=== PATIENT | female | born 1940 | race Caucasian/White ===

== ENCOUNTER 2019-12-20 11:50 | Outpatient (CLI) | payer OTHER, SELFPAY ==
[2019-12-20 11:59] LABS: Basophils Absolute Auto 0.05 K/mm3 (0.00-0.10); Basophils Percent Auto 0.7 % (0.0-1.0); Eosinophils Absolute Auto 0.29 K/mm3 (0.02-0.50); Eosinophils Percent Auto 4.1 % (1.0-6.0); Hematocrit 35.5 % (35.0-42.0); Hemoglobin 11.8 g/dL (11.7-13.8); Immature Granulocyte Absolute 0.02 K/mm3 (0.00-0.00); Immature Granulocyte Percent A 0.3 % (0.0-0.0); Lymphocytes Absolute Auto 2.09 K/mm3 (1.10-4.50); Lymphocytes Percent Auto 29.9 % (18.0-42.0); Mean Corpuscular HGB Conc 33.2 g/dL (32.0-36.0); Mean Corpuscular Hemoglobin 32.8 pg (27.0-31.0); Mean Corpuscular Volume 98.6 fL (78.0-102.0); Mean Platelet Volume 8.5 fl (9.2-11.8); Monocytes Absolute Auto 0.55 K/mm3 (0.10-0.90); Monocytes Percent Auto 7.9 % (2.0-11.0); Neutrophils Percent Auto 57.1 % (50.0-70.0); Platelet Count Result 362 K/mm3 (150-420); Red Cell Distribution Width 12.2 % (11.6-14.4)
[2019-12-20 12:20] LABS: Hemoglobin A1C 7.4 % (<5.7)
[2019-12-20 13:16] LABS: Alanine Aminotransferase 15 U/L (14-59); Albumin Level 3.8 g/dL (3.4-5.0); Alkaline Phosphatase 51 U/L (46-116); Anion Gap 12.3 mmol/L (7-16); Aspartate Amino Transferase 15 U/L (15-37); Bilirubin,Total 0.3 mg/dL (0.00-1.00); Blood Urea Nitrogen 35 mg/dL (7-18); Calcium 8.8 mg/dL (8.5-10.1); Carbon Dioxide 30 mmol/L (21-32); Chloride 101 mmol/L (98-108); Cholesterol 162 mg/dL (0-200); Estimated Glomerular Filt Rate 42; Glucose 116 mg/dL (70-99); HDL Direct 73 mg/dL (40-60); LDL Cholesterol Calculated 68 mg/dL (<130); Osmolality Calculated 297 mOsm/kg (285-295); Potassium 4.3 mmol/L (3.5-5.1); Sodium 139 mmol/L (136-145); Total Protein 6.5 g/dL (6.4-8.2); Triglycerides 104 mg/dL (0-150)
== END 2019-12-20 11:51 | disposition home or self-care (01) ==
LOC: CHSLAB 11:52
PROVIDERS: PCP Internal Medicine; Visit Provider Internal Medicine
DX: E11.9 Type 2 diabetes mellitus without complications (principal); I10 Essential (primary) hypertension
CPT/HCPCS: 36415; 80053; 80061; 83036; 85025

== ENCOUNTER 2020-06-27 11:08 | Outpatient (CLI) | payer OTHER, SELFPAY ==
[2020-06-27 11:43] LABS: Basophils Absolute Auto 0.06 K/mm3 (0.00-0.10); Basophils Percent Auto 0.7 % (0.0-1.0); Eosinophils Absolute Auto 0.32 K/mm3 (0.02-0.50); Hematocrit 36.6 % (35.0-42.0); Hemoglobin 11.5 g/dL (11.7-13.8); Immature Granulocyte Absolute 0.03 K/mm3 (0.00-0.00); Immature Granulocyte Percent A 0.4 % (0.0-0.0); Immature Platelet Fraction Pct 0.7 % (1.0-7.0); Lymphocytes Absolute Auto 2.45 K/mm3 (1.10-4.50); Lymphocytes Percent Auto 30.4 % (18.0-42.0); Mean Corpuscular HGB Conc 31.4 g/dL (32.0-36.0); Mean Corpuscular Hemoglobin 30.1 pg (27.0-31.0); Mean Corpuscular Volume 95.8 fL (78.0-102.0); Mean Platelet Volume 8.6 fl (9.2-11.8); Monocytes Absolute Auto 0.59 K/mm3 (0.10-0.90); Monocytes Percent Auto 7.3 % (2.0-11.0); Neutrophils Absolute Auto 4.6 K/mm3 (1.7-7.2); Neutrophils Percent Auto 57.2 % (50.0-70.0); Platelet Count Result 566 K/mm3 (150-420); Red Blood Count 3.82 M/mm3 (4.20-5.40); Red Cell Distribution Width 13.4 % (11.6-14.4); White Blood Count 8.1 K/mm3 (4.8-10.8)
[2020-06-27 11:48] LABS: Hemoglobin A1C 7.3 % (<5.7)
[2020-06-27 12:32] LABS: Alanine Aminotransferase 14 U/L (14-59); Albumin Level 4.3 g/dL (3.4-5.0); Alkaline Phosphatase 55 U/L (46-116); Anion Gap 11 mmol/L (8-16); Aspartate Amino Transferase 11 U/L (15-37); Bilirubin,Total 0.4 mg/dL (0.00-1.00); Blood Urea Nitrogen 27 mg/dL (7-18); Calcium 9.2 mg/dL (8.5-10.1); Carbon Dioxide 26 mmol/L (21-32); Chloride 101 mmol/L (98-108); Cholesterol 170 mg/dL (0-200); Estimated Glomerular Filt Rate 44; Glucose 132 mg/dL (70-99); HDL Direct 82 mg/dL (40-60); LDL Cholesterol Calculated 55 mg/dL (<130); Osmolality Calculated 293 mOsm/kg (285-295); Potassium 4.3 mmol/L (3.5-5.1); Sodium 138 mmol/L (136-145); Total Protein 7.2 g/dL (6.4-8.2); Triglycerides 163 mg/dL (0-150)
== END 2020-06-27 11:09 | disposition home or self-care (01) ==
PROVIDERS: PCP Internal Medicine; Visit Provider Internal Medicine
DX: E11.9 Type 2 diabetes mellitus without complications (principal); I10 Essential (primary) hypertension; E78.5 Hyperlipidemia, unspecified
CPT/HCPCS: 36415; 80053; 80061; 83036; 85025; 85055

== ENCOUNTER 2021-01-26 12:41 | Outpatient (CLI) | payer OTHER, SELFPAY ==
[2021-01-26 12:56] LABS: Add Urine Microscopic? YES; Appearance Urine Clear (Clear); Basophils Absolute Auto 0.04 K/mm3 (0.00-0.10); Basophils Percent Auto 0.5 % (0.0-1.0); Bilirubin Urine Negative (Negative); Blood Urine Negative (Negative); Color Urine Light Yellow (Yellow); Eosinophils Absolute Auto 0.24 K/mm3 (0.02-0.50); Eosinophils Percent Auto 2.8 % (1.0-6.0); Glucose Urine UA Negative (Negative); Hematocrit 39.2 % (35.0-42.0); Hemoglobin 12.6 g/dL (11.7-13.8); Immature Granulocyte Absolute 0.03 K/mm3 (0.00-0.00); Immature Granulocyte Percent A 0.4 % (0.0-0.0); Ketones Urine Negative (Negative); Leukocyte Esterase Ur Trace LEU/UL (Negative); Lymphocytes Absolute Auto 2.26 K/mm3 (1.10-4.50); Lymphocytes Percent Auto 26.4 % (18.0-42.0); Mean Corpuscular HGB Conc 32.1 g/dL (32.0-36.0); Mean Corpuscular Hemoglobin 31.1 pg (27.0-31.0); Mean Corpuscular Volume 96.8 fL (78.0-102.0); Mean Platelet Volume 8.6 fl (9.2-11.8); Monocytes Absolute Auto 0.59 K/mm3 (0.10-0.90); Monocytes Percent Auto 6.9 % (2.0-11.0); Neutrophils Absolute Auto 5.4 K/mm3 (1.7-7.2); Nitrate Urine Negative (Negative); Platelet Count Result 427 K/mm3 (150-420); Protein Urine Negative (Negative); Red Blood Count 4.05 M/mm3 (4.20-5.40); Red Cell Distribution Width 14.5 % (11.6-14.4); Specific Grav Ur 1.015 (1.010-1.020); Urobilinogen Urine 0.2 mg/dL (0.2-1.0); White Blood Count 8.6 K/mm3 (4.8-10.8); pH Urine 5.5 (5.0-8.0)
[2021-01-26 13:02] LABS: Bacteria Urine Trace /hpf; RBC Urine None seen /hpf (0-2); Squamous Epithelial Cell Urine Rare /hpf (Few); WBC Urine 0-3 /hpf (0-3)
[2021-01-26 13:10] LABS: Hemoglobin A1C 7.4 % (<5.7)
[2021-01-26 13:23] LABS: Creatinine Urine 66.05 mg/dL (40-278); MALB Creatinine Ratio 19.6 mg/g (0-30); Microalbumin Urine Random < 13.0 mg/L
[2021-01-26 14:10] LABS: Alanine Aminotransferase 20 U/L (14-59); Albumin Level 4.1 g/dL (3.4-5.0); Alkaline Phosphatase 77 U/L (46-116); Anion Gap 14 mmol/L (8-16); Aspartate Amino Transferase 13 U/L (15-37); Bilirubin,Total 0.2 mg/dL (0.00-1.00); Blood Urea Nitrogen 42 mg/dL (7-18); Calcium 9.4 mg/dL (8.5-10.1); Carbon Dioxide 26 mmol/L (21-32); Chloride 100 mmol/L (98-108); Cholesterol 158 mg/dL (0-200); Estimated Glomerular Filt Rate 36; Glucose 162 mg/dL (70-99); HDL Direct 73 mg/dL (40-60); LDL Cholesterol Calculated 61 mg/dL (<130); Osmolality Calculated 304 mOsm/kg (285-295); Potassium 4.8 mmol/L (3.5-5.1); Sodium 140 mmol/L (136-145); Thyroid Stimulating Hormone 4.24 uIU/mL (0.36-3.74); Total Protein 6.9 g/dL (6.4-8.2); Triglycerides 119 mg/dL (0-150)
== END 2021-01-26 12:42 | disposition home or self-care (01) ==
LOC: CHSLAB 12:44
PROVIDERS: PCP Internal Medicine; Visit Provider Internal Medicine
DX: E11.9 Type 2 diabetes mellitus without complications (principal); E78.5 Hyperlipidemia, unspecified; I10 Essential (primary) hypertension; F41.9 Anxiety disorder, unspecified
CPT/HCPCS: 36415; 80053; 80061; 81001; 82043; 83036; 84443; 85025

== ENCOUNTER 2021-07-02 15:16 | Outpatient (CLI) | payer OTHER, SELFPAY ==
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
[2021-07-02 15:39] LABS: Basophils Absolute Auto 0.05 K/mm3 (0.00-0.10); Basophils Percent Auto 0.5 % (0.0-1.0); Eosinophils Absolute Auto 0.17 K/mm3 (0.02-0.50); Eosinophils Percent Auto 1.7 % (1.0-6.0); Hematocrit 37.4 % (35.0-42.0); Hemoglobin 11.7 g/dL (11.7-13.8); Immature Granulocyte Absolute 0.05 K/mm3 (0.00-0.00); Immature Granulocyte Percent A 0.5 % (0.0-0.0); Lymphocytes Absolute Auto 2.21 K/mm3 (1.10-4.50); Lymphocytes Percent Auto 21.8 % (18.0-42.0); Mean Corpuscular HGB Conc 31.3 g/dL (32.0-36.0); Mean Corpuscular Hemoglobin 31.1 pg (27.0-31.0); Mean Corpuscular Volume 99.5 fL (78.0-102.0); Mean Platelet Volume 8.6 fl (9.2-11.8); Monocytes Absolute Auto 0.65 K/mm3 (0.10-0.90); Monocytes Percent Auto 6.4 % (2.0-11.0); Neutrophils Percent Auto 69.1 % (50.0-70.0); Platelet Count Result 462 K/mm3 (150-420); Red Blood Count 3.76 M/mm3 (4.20-5.40); White Blood Count 10.1 K/mm3 (4.8-10.8)
[2021-07-02 15:53] LABS: D Dimer 0.48 mg/L (0.19-0.50)
[2021-07-02 16:00] LABS: Alanine Aminotransferase 17 U/L (14-59); Albumin Level 3.9 g/dL (3.4-5.0); Alkaline Phosphatase 102 U/L (46-116); Anion Gap 9 mmol/L (8-16); Aspartate Amino Transferase < 10 U/L (15-37); Bilirubin,Total 0.3 mg/dL (0.00-1.00); Blood Urea Nitrogen 32 mg/dL (7-18); Calcium 9.6 mg/dL (8.5-10.1); Carbon Dioxide 31 mmol/L (21-32); Chloride 101 mmol/L (98-108); Cholesterol 161 mg/dL (0-200); Creatine Kinase 44 U/L (26-192); Estimated Glomerular Filt Rate 44; Glucose 175 mg/dL (70-99); HDL Direct 69 mg/dL (40-60); LDL Cholesterol Calculated 69 mg/dL (<130); Osmolality Calculated 302 mOsm/kg (285-295); Potassium 4.5 mmol/L (3.5-5.1); Sodium 141 mmol/L (136-145); Total Protein 7.5 g/dL (6.4-8.2); Triglycerides 116 mg/dL (0-150); Troponin I 7.7 ng/L (0.00-60.4)
== END 2021-07-02 15:17 | disposition home or self-care (01) ==
LOC: CHSLAB 15:17
PROVIDERS: PCP Internal Medicine; Visit Provider Internal Medicine
DX: E11.9 Type 2 diabetes mellitus without complications (principal); R07.9 Chest pain, unspecified
CPT/HCPCS: 36415; 71046; 80053; 80061; 82550; 82553; 83036; 84484; 85025; 85380

== ENCOUNTER 2022-03-27 15:55 | Outpatient (CLI) | payer OTHER, SELFPAY ==
[2022-03-27 16:13] LABS: Appearance Urine Clear (Clear); Basophils Absolute Auto 0.05 K/mm3 (0.00-0.10); Basophils Percent Auto 0.6 % (0.0-1.0); Bilirubin Urine Negative (Negative); Blood Urine Negative (Negative); Eosinophils Percent Auto 3.8 % (1.0-6.0); Glucose Urine UA Negative (Negative); Hematocrit 32.2 % (35.0-42.0); Immature Granulocyte Absolute 0.04 K/mm3 (0.00-0.00); Immature Granulocyte Percent A 0.5 % (0.0-0.0); Ketones Urine Negative (Negative); Leukocyte Esterase Ur 1+ (Negative); Lymphocytes Absolute Auto 2.28 K/mm3 (1.10-4.50); Mean Corpuscular HGB Conc 31.1 g/dL (32.0-36.0); Mean Corpuscular Hemoglobin 28.2 pg (27.0-31.0); Mean Platelet Volume 8.9 fl (9.2-11.8); Monocytes Absolute Auto 0.47 K/mm3 (0.10-0.90); Neutrophils Absolute Auto 4.7 K/mm3 (1.7-7.2); Neutrophils Percent Auto 60.1 % (50.0-70.0); Nitrate Urine Negative (Negative); Platelet Count Result 435 K/mm3 (150-420); Protein Urine Negative (Negative); Red Blood Count 3.54 M/mm3 (4.20-5.40); Red Cell Distribution Width 14.6 % (11.6-14.4); Specific Grav Ur 1.015 (1.010-1.020); Urobilinogen Urine 0.2 mg/dL (0.2-1.0); White Blood Count 7.9 K/mm3 (4.8-10.8)
[2022-03-27 16:21] LABS: Add Urine Microscopic? YES; Bacteria Urine Trace /hpf; Color Urine Light Yellow (Yellow); RBC Urine None seen /hpf (0-2); Squamous Epithelial Cell Urine Few /hpf (Few)
[2022-03-27 16:28] LABS: Hemoglobin A1C 8.1 % (<5.7)
[2022-03-27 16:38] LABS: Alanine Aminotransferase 19 U/L (14-59); Albumin Level 4.1 g/dL (3.4-5.0); Alkaline Phosphatase 72 U/L (46-116); Anion Gap 8 mmol/L (8-16); Aspartate Amino Transferase 18 U/L (15-37); Bilirubin,Total 0.2 mg/dL (0.00-1.00); Blood Urea Nitrogen 34 mg/dL (7-18); Calcium 9.1 mg/dL (8.5-10.1); Carbon Dioxide 30 mmol/L (21-32); Chloride 104 mmol/L (98-108); Cholesterol 163 mg/dL (0-200); Estimated Glomerular Filt Rate 32; Glucose 148 mg/dL (70-99); HDL Direct 77 mg/dL (40-60); LDL Cholesterol Calculated 71 mg/dL (<130); Osmolality Calculated 304 mOsm/kg (285-295); Potassium 4.4 mmol/L (3.5-5.1); Sodium 142 mmol/L (136-145); Thyroid Stimulating Hormone 4.06 uIU/mL (0.36-3.74); Total Protein 7.1 g/dL (6.4-8.2); Triglycerides 74 mg/dL (0-150)
== END 2022-03-27 15:56 | disposition home or self-care (01) ==
LOC: CHSLAB 15:59
PROVIDERS: PCP Internal Medicine; Visit Provider Internal Medicine
DX: E78.5 Hyperlipidemia, unspecified (principal); I10 Essential (primary) hypertension; E11.9 Type 2 diabetes mellitus without complications
CPT/HCPCS: 36415; 80053; 80061; 81001; 83036; 84443; 85025

== ENCOUNTER 2024-05-24 16:06 | Outpatient (CLI) | payer OTHER, SELFPAY ==
--- NOTE | ~2024-05-24 | XR_ITS ---
EXAM: XR elbow LT 2V DATE: 05/24/2024 16:44 HISTORY: Fall, L knee Pain, L Rib Pain, R thumb pain, L elbow pain . COMPARISON: None available. FINDINGS: Decreased mineralization. No fracture or dislocation. No lytic or blastic lesion. Mild deg enerative change. No erosion or periosteal change. Small volume elbow joint fluid. IMPRESSION: Small elbow joint effusion which can herald the presence of an occult fracture, likely ra dial head in a patient of this age. Reviewed, dictated and finalized at location K. WASHER IMPRESSION: Small elbow joint effusion which can herald the presence of an occu lt fracture, likely radial head in a patient of this age.
--- NOTE | ~2024-05-24 | XR_ITS ---
EXAM: [id number]_[id number] DATE: 05/24/2024 16:44 HISTORY: Fall, L knee Pain, L Rib Pain, R thumb pain, L elbow pain . COMPARISON: None available. FINDINGS: Osteopenia. No fracture or dislocation. No lytic or blastic lesion. Mild tricompartmental osteoarthritis. No erosion or periosteal change. Soft tissues within normal limits. IMPRESSION: No acute osseous finding in the left knee. Reviewed, dictated and finalized at location K. TICS SOFTWARE ENGINEER
--- NOTE | ~2024-05-24 | XR_ITS ---
EXAMINATION: XR chest 2V Exam Date/Time: 05/24/2024 16:18 OBGYN SPECIALIST HISTORY: Fall, L knee Pain, L Rib Pain, R thumb pain, L elbow pain Comparison: 07/02/2021. RESULT: Lines, tubes, and devices: None. Lungs and pleura: Senescent changes. Cardiomediastinal silhouette: Stable. Large hiatal hernia. Other: No acute osseous or upper abdominal finding. IMPRESSION: No acute cardiopulmonary process. Reviewed, dictated and finalized at location K. N SPECIALIST
--- NOTE | ~2024-05-24 | XR_ITS ---
EXAM: XR hand RT 2V DATE: 05/24/2024 16:44 HISTORY: Fall, L knee Pain, L Rib Pain, R thumb pain, L elbow pain . COMPARISON: None available. FINDINGS: Lateral view limited by overlapping fingers. Osteopenia. No fracture or dislocation. No lyt ic or blastic lesion. Moderate polyarticular arthritis. Chondrocalcinosis. No erosion or periosteal c hange. Soft tissues within normal limits. IMPRESSION: No acute osseous finding in the right hand. Reviewed, dictated and finalized at location K. F DRIER OPERATOR
== END 2024-05-24 16:07 | disposition home or self-care (01) ==
PROVIDERS: PCP Internal Medicine; Visit Provider Nurse Practitioner Family
DX: M25.562 Pain in left knee (principal); R07.81 Pleurodynia; M79.644 Pain in right finger(s); S59.902A Unspecified injury of left elbow, initial encounter; M25.422 Effusion, left elbow
CPT/HCPCS: 71046; 73070; 73120; 73560

== ENCOUNTER 2024-06-01 01:37 | Emergency (ER) | payer OTHER, SELFPAY ==
[2024-06-01 01:42] VITALS: BP 151/78; PULSE 71; RESP 18; TEMP 36.8; O2SAT 96
--- NOTE | 2024-06-01 01:48 | ED.LOWEXIN ---
HPI - Extremity Injury (Lower) General Stated Complaint: fall Time Seen by Provider: 06/01/24 01:44 Source: patient Mode of arrival: ambulatory Limitations: no limitations History of Present Illness HPI Narrative: 84 years old white female came to the emergency room by private car complaining of any pain and right thumb pain after falling few days ago. Patient was seen her family physician and had x-ray of the right hand, left knee and left elbow which showed no acute osseous abnormality. Patient came in this morning because would like to have pain medication for left knee pain. She denies any fever, chills, nausea, vomiting or new trauma. Related Data Allergies Allergy/AdvReac Type Severity Reaction Status Date / Time No Known Allergies Allergy Unverified 10/27/14 08:58 Review of Systems Review of Systems: All systems reviewed & are unremarkable except as noted in HPI and below Exam Narrative: General appearance: Well-developed, well-nourished Skin: Normal color Head: Normocephalic, nontraumatic Eyes: Clear conjunctiva ENT: Oropharynx normal, ears normal, nose normal Neck: Supple, nontender Chest and respiratory: Airway patent, no respiratory distress, no accessory muscle use Heart: Regular rate/rhythm Abdomen: Soft, nontender, no organomegaly, quiet bowel sounds Vascular: Normal peripheral pulses, normal capillary refill. Musculoskeletal: Left knee showed slight bruises, slightly swelling anteriorly, no deformity, slight limited range of motion because of pain. Neurologic: Alert and oriented ?3, CONTRACT LOADER is normal as tested, no gross motor deficit Course Vital Signs Vital signs: Vital Signs Temperature 36.8 C 06/01/24 01:42 Pulse Rate 71 06/01/24 01:42 Respiratory Rate 18 06/01/24 01:42 Blood Pressure 151/78 H 06/01/24 01:42 Pulse Oximetry 96 06/01/24 01:42 Oxygen Delivery Room Air 06/01/24 01:42 Temperature 36.8 C 06/01/24 01:42 Pulse Rate 71 06/01/24 01:42 Respiratory Rate 18 06/01/24 01:42 Blood Pressure 151/78 H 06/01/24 01:42 Pulse Oximetry 96 06/01/24 01:42 Oxygen Delivery Room Air 06/01/24 01:42 MDM - Extremity Injury (Lower) MDM Narrative Medical decision making narrative: Patient presents with left knee pain status post a fall recently, x-ray on May 24 of the left knee showed no acute osseous abnormality. Patient currently on Excedrin which she likes. Would like to have another pain medication. Differential Diagnosis Differential diagnosis: Likely other ( Left knee contusion, bruises, sprain, strain.) Critical Care Time Critical Care Time Critical Care Time: No Discharge Plan Discharge Clinical Impression: Knee pain, left Patient Disposition: Home, Self-Care Condition: Stable Instructions: Knee Pain (ED) Additional Instructions: Return if symptoms are worsening , call your family physician today for appointment, take Tylenol, Ibuprofen 600 every 6 hours as needed or Excedrin as as needed for aches and pain, continue home medications. Follow-up/Referrals: Zander Gaines MD [Primary Care Provider] -
[2024-06-01] MEDS: KETOROLAC 30 MG/ML VIAL (*BKC) IM (02:11)
[2024-06-01 02:19] VITALS: BP 144/75; PULSE 75; RESP 20; O2SAT 96
== END 2024-06-01 02:19 | disposition home or self-care (01) ==
PROVIDERS: Emergency Provider Emergency Medicine; PCP Internal Medicine
DX: M25.562 Pain in left knee (principal); W19.XXXA Unspecified fall, initial encounter
CPT/HCPCS: 96372; 99283; J1885

== ENCOUNTER 2024-06-08 04:20 | Emergency (ER) | payer OTHER, SELFPAY | END 2024-06-08 05:05 | disposition home or self-care (01) | PROVIDERS: Emergency Provider Emergency Medicine; PCP Internal Medicine | DX: K59.00 Constipation, unspecified (principal); S80.02XA Contusion of left knee, initial encounter; W54.1XXA Struck by dog, initial encounter | CPT/HCPCS: 99281 ==